=== PATIENT | female | born 1945 | race Caucasian/White ===

== ENCOUNTER 2017-07-15 12:40 | Observation (INO) | payer OTHER ==
[~2017-07-15] VITALS: Ht 154.9 cm; Wt 66.3 kg
[~2017-07-15 12:40] MED LIST: CALCIUM CITRAT1 EA16 PO; EVISTA60 MG PO; INDAPAMIDE2.5 MG PO; IRBESARTAN-HCT1 EAC1 PO; MAGNESIUM PO; MULTI-VITAMIN1 EAC5 PO; NORCO 10-325 T1 EACH PO; NORVASC5 MG PO; OCUVITE TABLET1 EAC1 PO; OMEGA 3-6-9 11200 M1 PO; OSTEO BI-FLEX1 EAC4 PO; POTASSIUM PO; SYNTHROID88 MCG PO
[2017-07-15 12:44] VITALS: BP 130/79
[2017-07-15 13:09] LABS: ABSOLUTE BASOPHILS 0.1 thou/uL (0.0-0.2); ABSOLUTE EOSINOPHILS 0.3 thou/uL (0.0-0.7); ABSOLUTE LYMPHOCYTES 1.8 thou/uL (0.8-5.3); ABSOLUTE MONOCYTES 0.5 thou/uL (0.0-1.2); ABSOLUTE NEUTROPHILS 4.6 thou/uL (1.6-8.1); BASOPHILS 1.3 %; EOSINOPHILS 4.3 %; HEMATOCRIT 44.4 % (37.0-47.0); HEMOGLOBIN 15.1 gm/dL (12.0-15.0); LYMPHOCYTES 24.3 %; MCH 33.3 pg (26.0-34.0); MCV 97.9 fL (80.0-100.0); MONOCYTES 7.2 %; MPV 7.4 fl. (7.2-11.1); NUCLEATED RBCS 0 /100WBC; PLATELET COUNT* 236 thou/uL (150-400); POLYS 62.9 %; RBC 4.54 mil/uL (4.20-5.00); WBC 7.3 thou/uL (4.0-11.0)
[2017-07-15 13:20] LABS: ANION GAP 8 mmol/L (7-16); APTT 28.3 Seconds (25.0-31.3); BUN 22 mg/dL (7-18); CALCIUM 9.5 mg/dL (8.5-10.1); CHLORIDE 98 mmol/L (98-107); CO2 30 mmol/L (21-32); CREATININE 0.9 mg/dL (0.6-1.3); GLUCOSE 105 mg/dL (70-99); INR 1.1; POTASSIUM 3.5 mmol/L (3.5-5.1); SODIUM 136 mmol/L (136-145)
[2017-07-15 13:40] LABS: ALBUMIN 3.8 g/dL (3.4-5.0); ALKALINE PHOSPHATASE 64 U/L (46-116); CK-MB MASS < 0.5 ng/mL (<0.5-3.6); LIPASE 170 U/L (73-393); MAGNESIUM 1.8 mg/dL (1.8-2.4); NT-PRO BRAIN NAT PEPTIDE 102 pg/mL (<300); SGOT 18 U/L (15-37); SGPT 20 U/L (30-65); TOTAL BILIRUBIN 0.6 mg/dL (<0.1-1.0); TOTAL PROTEIN 7.7 g/dL (6.4-8.2); TROPONIN-I LEVEL <0.06 ng/mL (<0.06)
[2017-07-15 15:30] VITALS: BP 152/62
[2017-07-15 15:50] VITALS: BP 164/67
--- NOTE | 2017-07-15 16:43 | EKG ---
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1945 Requested By: Danny Anne Order Number: [id number] MD: Young Horn Measurements Intervals [place] Rate: 83 P: 84 NH: 171 QRS: 30 QRSD: 91 T: 61 QT: 369 QTc: 434 Interpretive Statements Sinus rhythm Anteroseptal infarct, age indeterminate, possible Baseline wander in lead(s) V3 No previous ECG available for comparison Electronically Signed On 07-15-2017 16:42:43 CDT by Young Horn [email or web address] <ELECTRONICALLY SIGNED> By: Young Horn MD, [facility] 07/15/17 1642 1246 1246 Young Horn MD, [facility] /EPI
--- NOTE | 2017-07-15 18:14 | NUR ---
PT ARRIVED ON THE FLOOR AT 1545. PT IS A&O X4 CALM AND COOPERATIVE. PT DENIES ANY C/O PAIN OR DISTRESS. SHE IS UP AD SHALA AND HAS A STEADY GAIT. VSS AND TRACING NSR ON THE MONITOR. PT ORIENTED TO UNIT AND SERVICES, FOOD AND DRINK OFFERED. NURSING ASSESSMENT COMPLETED, SKIN W/D/I. PT RESTING IN BED WATCHINH TV, NURSING WILL CONTINUE TO MONITOR.
[2017-07-15 20:00] VITALS: BP 145/59
[2017-07-16] VITALS: BP 135/68
[2017-07-16 01:01] LABS: ABSOLUTE BASOPHILS 0.1 thou/uL (0.0-0.2); ABSOLUTE EOSINOPHILS 0.5 thou/uL (0.0-0.7); ABSOLUTE LYMPHOCYTES 2.7 thou/uL (0.8-5.3); ABSOLUTE MONOCYTES 0.7 thou/uL (0.0-1.2); ABSOLUTE NEUTROPHILS 4.4 thou/uL (1.6-8.1); BASOPHILS 1.1 %; EOSINOPHILS 5.8 %; HEMATOCRIT 39.3 % (37.0-47.0); HEMOGLOBIN 13.5 gm/dL (12.0-15.0); LYMPHOCYTES 31.6 %; MCH 33.5 pg (26.0-34.0); MCHC 34.5 g/dL (28.0-37.0); MCV 97.1 fL (80.0-100.0); MONOCYTES 8.7 %; MPV 7.6 fl. (7.2-11.1); NUCLEATED RBCS 0 /100WBC; PLATELET COUNT* 219 thou/uL (150-400); POLYS 52.8 %; RBC 4.04 mil/uL (4.20-5.00); RDW-CV 12.8 % (10.5-14.5); WBC 8.4 thou/uL (4.0-11.0)
[2017-07-16 01:07] LABS: CALCIUM 8.3 mg/dL (8.5-10.1); CREATININE 0.9 mg/dL (0.6-1.3); POTASSIUM 3.4 mmol/L (3.5-5.1)
--- NOTE | 2017-07-16 05:22 | NUR ---
PT CARE ASSUMED AFTER REPORT. ASSESSMENT COMPLETE. SR/1ST DEGREE ON MONITOR. DENIES PIAN. UP AD SHALA WITH STEADY GAIT. NPO FOR CARDIOLOGY CONSULT. CALL LIGHT IN REACH. BED IN LOWEST POSITION. PROGRESSING TOWARDS GOALS.
[2017-07-16 08:30] VITALS: BP 124/56
[2017-07-16 11:27] VITALS: BP 135/64
--- NOTE | 2017-07-16 11:27 | EKG ---
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 : 1945 Requested By: Danny Anne Order Number: [id number] MD: Mustapha Guevara Measurements Intervals [place] Rate: 74 P: 75 IN: 194 QRS: 0 QRSD: 95 T: 60 QT: 414 QTc: 460 Interpretive Statements Sinus rhythm Probable left atrial enlargement septal infarct, age indeterminate Compared to ECG 07/15/2017 12:46:59 No significant changes Electronically Signed On 07-16-2017 11:26:50 CDT by Mustapha Guevara [email or web address] <ELECTRONICALLY SIGNED> By: Mustapha Guevara MD, [facility] 07/16/17 [id number] Mustapha Guevara MD, [facility] /EPI
--- NOTE | 2017-07-16 11:42 | EKG ---
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 : 1945 Requested By: Danny Anne Order Number: [id number] Reading MD: Mustapha Guevara Measurements Intervals [place] Rate: 69 P: -30 MN: 214 QRS: 18 QRSD: 91 T: 61 QT: 429 QTc: 460 Interpretive Statements Sinus rhythm Borderline prolonged MN interval Probable left atrial enlargement septal infarct, age indeterminate Compared to ECG 07/15/2017 12:46:59 No significant changes Electronically Signed On 07-16-2017 11:42:16 CDT by Mustapha Guevara [email or web address] <ELECTRONICALLY SIGNED> By: Mustapha Guevara MD, [facility] 07/16/17 1142 0224 0224 Mustapha Guevara MD, [facility] /EPI
--- NOTE | 2017-07-16 14:18 | NUR ---
MET WITH PT'S SPOUSE TO DISCUSS HOME SITUATION/DC PLANNING. PT OFF UNIT FOR TEST. PER SPOUSE, SHE IS INDEPENDENT AND ACTIVE. USES NO EQUIPMENT AND HASN'T HAD HH. PLAN IS FOR HER TO RETURN HOME AT DC. WILL FOLLOW
--- NOTE | 2017-07-16 15:00 | NUR ---
PT BACK TO UNIT AFTER STRESS ECHO. A & O X4. OK TO DC PER DR. PARSON DIAGNOSTIC TEST IS NEGATIVE. DR. BURGOS CONTACTED AND AGREES TO PT DC.
[2017-07-16 16:00] VITALS: BP 135/64
--- NOTE | 2017-07-16 16:23 | EXE ---
[place] [address] STRESS ECHOCARDIOGRAM Name: CARLEY CRUZ Tunde [address] [id number] Admission: 07/15/17 Attend Phys: Andrew Charles, Discharge: Date of : 43 Date of Service: 07/16/17 1623 Report #: [id number] THIS REPORT FOR: //name// APPROVED REPORT Study performed: 07/16/2017 13:27:28 Exam: Dobutamine Stress Echo Indication: Chest pain Patient Location: In-Patient Stress Nurse: Ellie Clayton RN Room #: [facility] Supervising Physician: Mustapha Guevara MD Status: routine Ht: 5 ft 1 in HR: 66 bpm BP: 129/62 mmHg Rhythm: NSR Medical History Cardiac Risk Factors: HTN, FHX of CAD Procedure The patient underwent a Pharmacological Stress Test using Dobutamine. Blood pressure, heart rate, and EKG were monitored. An Echocardiogram was performed by orthodontic laboratory technician in four stages in quad fashion. At peak stress, four selected images were obtained and placed side by side with resting images for comparison. Stress Test Details Stress Test: Pharmacological Stress Test using Dobutamine. Reason for pharmacologic stress test: physical limitation. HR Resting HR: 66 bpm Max Heart Rate (APMHR): 147 bpm Max HR Achieved: 160 bpm Target HR (85% APMHR): 124 bpm % of APMHR: 108 Recovery HR: 103 bpm HR response to stress: Normal HR response to stress BP Resting BP: 129/62 mmHg Max BP: 184/49 mmHg Recovery BP: 141/[address] [address] STRESS ECHOCARDIOGRAM Name: CARLEY CRUZ Tunde [address]: [address] [id number] Admission: 07/15/17 Attend Phys: Andrew Charles, Discharge: Date of : 43 Date of Service: 07/16/17 1623 Report #: [id number] ECG Resting ECG: Sinus Rhythm Stress ECG: Sinus Rhythm, nonspecific ST-T abnormalities ST Change: Upsloping ST depression Maximum ST Deviation: 1.5 mm Arrhythmia: VPC's Recovery ECG: Sinus Rhythm Recovery ST Change: Upsloping ST depression Recovery ST Deviation: 1.5 mm Clinical Reason for Termination: Completed protocol Stress Symptoms: Nausea Pre-Stress Echo The resting Echocardiogram showed normal left ventricular contractility with an estimated Ejection Fraction of about 60-65%. Post-Stress Echo The stress Echocardiogram showed normal left ventricular contractility with an estimated Ejection Fraction of about >70%. Conclusion Clinical Response: Non-ischemic Stress ECG Response: Equivocal Stress Echo Images: Non-ischemic low risk dobutamine stress echo for future cardiac events Other Information Study Quality: Good <Conclusion> low risk dobutamine stress echo for future cardiac events <ELECTRONICALLY SIGNED> By: Mustapha Guevara MD, [facility]ACC 07/16/17 1623 162 162 Mustapha Guevara MD, [facility]ACC /INF
--- NOTE | 2017-07-17 13:18 | CON ---
[address] [address] CONSULTATION Name: CARLEY CRUZ Room: [address] Maria Isabel Rice#: [id number] Admission: 07/15/17 Attend Phys: Andrew Charles MD Discharge: 07/16/17 Date of : 43 Report #: [id number] THIS REPORT FOR: //name// CC: Andrew Rudd DO DATE OF SERVICE: 07/16/2017 CARDIOLOGY CONSULTATION HISTORY OF PRESENT ILLNESS: The patient is a 72-year-old white female who I was asked to see in the hospital today after she complained of chest pain. The patient has no previous history of heart disease. She has had no previous cardiac evaluation. She does not exercise on a regular basis because of chronic back pain. She states about 2 weeks ago, she had a pain in her chest, within her back, up in her throat. She noticed her blood pressure was high. It resolved after several minutes. She then had another episode about a week ago, where she felt a sharp pain in her chest that resolved. Yesterday morning, she was at home and she felt sharp pain in her left breast that radiated around into her back. However, she denies shortness of breath, diaphoresis or nausea. She denied any recent trauma to her chest. The pain was not related to food or bending. She denied any rash. She does get short of breath with exertion, but has had no edema. She notes occasional flutter in her chest. No syncope. PAST MEDICAL HISTORY: Significant for tonsillectomy, hysterectomy, cholecystectomy and hypertension. No history of diabetes. MEDICATIONS: Consist of amlodipine, indapamide, irbesartan, hydrochlorothiazide, Synthroid and Evista. ALLERGIES: She has no known drug allergies. FAMILY HISTORY: Her brother had coronary bypass surgery. SOCIAL HISTORY: She is . She and her live in [place]. Quit smoking years ago. No alcohol abuse. REVIEW OF SYSTEMS: She has had no history of stroke, asthma, peptic ulcer disease, liver disease or kidney disease. She has chronic back pain. She wears glasses. No psychiatric illness. PHYSICAL EXAMINATION: GENERAL: Revealed an elderly female who was lying in bed. She appeared in no acute distress. VITAL SIGNS: She had a blood pressure of 130/80, pulse 70. [place] [address] CONSULTATION Name: CARLEY CRUZ Room: [address]#: [id number] Admission: 07/15/17 Attend Phys: Andrew Charles MD Discharge: 07/16/17 Date of : 43 Report #: [id number] HEENT: She was anicteric, conjunctivae pink. Mucous membranes moist. NECK: Neck veins nondistended. No carotid bruits. Neck supple. CHEST: Clear to auscultation. CARDIAC EXAMINATION: Regular rate, without murmur. ABDOMEN: Soft, nontender. EXTREMITIES: Had no edema. Dorsalis pedis pulse 3+ bilaterally. SKIN: Warm, dry. NEUROLOGICAL EXAMINATION: Nonfocal. LYMPH EXAMINATION: No adenopathy. MUSCULOSKELETAL EXAMINATION: No joint effusion. PSYCHIATRIC EXAMINATION: Her mood is appropriate. LABORATORY DATA: Her ECG showed a sinus rhythm, septal Q-waves. There was a nonspecific ST-segment change noted. Her workup in the emergency room yesterday, she had a portable chest x-ray that showed normal heart size and minimal atelectasis. She had sodium 137, potassium 3.4 and creatinine 0.9. Liver function studies were normal. Troponin all 0.06. White blood cell count 8.4 and hemoglobin 13.5. IMPRESSION AND RECOMMENDATIONS: 1. Chest pain. The patient has risk factors for coronary artery disease. Pain is atypical for angina. However, because of abnormal ECG and risk factors, I would recommend screening. Since the patient cannot walk on a treadmill, I would recommend a dobutamine stress echo. 2. Hypertension. The patient has been on a calcium js, ARB and diuretic. 3. Chronic back pain. 4. History of dyspepsia. <ELECTRONICALLY SIGNED> By: Mustapha Guevara MD, FACC 07/17/17 1318 0921 1230Daviboyd Guevara MD, FACC /nt
== END 2017-07-16 17:00 | disposition home or self-care (01) ==
LOC: M.ERS 12:40 → M.2W 13:40 → M.TBA-ER 13:40 → M.2W 15:56
PROVIDERS: Family Medicine; ADMIT Internal Medicine
DX: R07.89 Other chest pain (principal); I10 Essential (primary) hypertension; K21.9 Gastro-esophageal reflux disease without esophagitis; E03.9 Hypothyroidism, unspecified; Z87.891 Personal history of nicotine dependence

== ENCOUNTER 2017-12-09 06:51 | Inpatient (IN) | payer OTHER ==
[~2017-12-09] VITALS: Ht 152.4 cm; Wt 65.8 kg
[2017-12-09 07:10] VITALS: BP 155/65
[2017-12-09 07:55] LABS: ABSOLUTE BASOPHILS 0.1 thou/uL (0.0-0.2); ABSOLUTE EOSINOPHILS 0.3 thou/uL (0.0-0.7); ABSOLUTE LYMPHOCYTES 1.5 thou/uL (0.8-5.3); ABSOLUTE MONOCYTES 0.6 thou/uL (0.0-1.2); ABSOLUTE NEUTROPHILS 5.1 thou/uL (1.6-8.1); EOSINOPHILS 4.6 %; HEMOGLOBIN 13.7 gm/dL (12.0-15.0); LYMPHOCYTES 19.1 %; MCH 33.3 pg (26.0-34.0); MCHC 34.2 g/dL (28.0-37.0); MCV 97.6 fL (80.0-100.0); MONOCYTES 7.8 %; MPV 7.8 fl. (7.2-11.1); NUCLEATED RBCS 0 /100WBC; PLATELET COUNT* 212 thou/uL (150-400); POLYS 67.5 %; RDW-CV 13.1 % (10.5-14.5); WBC 7.6 thou/uL (4.0-11.0)
[2017-12-09 07:58] LABS: CALCIUM 8.6 mg/dL (8.5-10.1); CREATININE 0.9 mg/dL (0.6-1.3); POTASSIUM 3.3 mmol/L (3.5-5.1)
[2017-12-09 08:02] LABS: ALBUMIN 3.5 g/dL (3.4-5.0); TOTAL BILIRUBIN 0.6 mg/dL (<0.1-1.0); TOTAL PROTEIN 7.4 g/dL (6.4-8.2)
[2017-12-09 08:27] LABS: URINE BILIRUBIN NEGATIVE (Negative); URINE BLOOD NEGATIVE (Negative); URINE CLARITY CLEAR; URINE COLOR YELLOW; URINE GLUCOSE-RANDOM NEGATIVE (Negative); URINE KETONES NEGATIVE (Negative); URINE LEUKOCYTES-REFLEX 1+ (Negative); URINE NITRITE-REFLEX NEGATIVE (Negative); URINE PROTEIN NEGATIVE (Negative); URINE UROBILINOGEN 0.2 E.U./dl (0.2-1.0)
[2017-12-09 08:47] LABS: URINE WBC-REFLEX 0-5 Rare /HPF (0-5)
[2017-12-09 08:48] LABS: SQUAMOUS 0-3 Few /LPF (0-3); URINE RBC 0-2 Rare /HPF (0-2)
[2017-12-09 08:49] LABS: BACTERIA-REFLEX 1-9 Few /HPF (None Seen); CASTS None Seen /LPF (None Seen); CRYSTALS None Seen /LPF (None Seen); MUCUS None Seen strn/LPF (None Seen)
[2017-12-09 09:29] VITALS: BP 160/65
--- NOTE | 2017-12-09 10:33 | NUR ---
ADMISSION ASSESSMENT COMPLETED REFER TO COMPUTER CHARTING. PATIENT MED/SURG STATUS. BED IN LOW AND LOCKED POSITION. CALL LIGHT WITHIN REACH. PATIENT REPORTING NO NAUSEA OR SHORTNESS OF BREATH. PATIENT ORIENTATED TO ROOM AND CONTROLS. IV SALINE LOCKED. ON ROOM AIR. WILL CONTINUE TO MONITOR THIS SHIFT.
[2017-12-09 12:00] VITALS: BP 130/60
[2017-12-09 20:20] VITALS: BP 136/64
[2017-12-10] VITALS: BP 143/70
--- NOTE | 2017-12-10 06:38 | NUR ---
Alert and oriented x 4. She is up independently in the room. She's had some high BP's but she has hypertension. She has L flank pain. She has had norco x 2 for pain but states it doesn't help at this pain. Fentanyl given x 1 and she did get some rest this shift. Vitals are satble. She would like a stool softener and milk of mag ordered.
[2017-12-10 08:45] VITALS: BP 148/64
[2017-12-10 10:08] LABS: CALCIUM 9.2 mg/dL (8.5-10.1); CREATININE 0.8 mg/dL (0.6-1.3); POTASSIUM 3.2 mmol/L (3.5-5.1)
[2017-12-10 10:11] LABS: HEMATOCRIT 42.4 % (37.0-47.0); HEMOGLOBIN 14.4 gm/dL (12.0-15.0); MCH 32.9 pg (26.0-34.0); MCHC 33.9 g/dL (28.0-37.0); MCV 96.9 fL (80.0-100.0); RBC 4.37 mil/uL (4.20-5.00); RDW-CV 12.8 % (10.5-14.5)
[2017-12-10 11:20] VITALS: BP 149/69
--- NOTE | 2017-12-10 16:00 | NUR ---
PT.VERY DROWSY FROM PAIN MEDICATION. SHE SAID SHE LIVES WITH HER . IS INDEPENDENT. NO HX OF DME/HH OR SNF. NO DISCHARGE NEEDS ANTICIPATED.
--- NOTE | 2017-12-10 16:35 | NUR ---
PATIENT GIVEN PRN FENTANYL AND HYDROCODONE FOR PAIN WITH MINIMAL RELIEF. SCHED TRAMADOL STARTED THIS SHIFT AND GIVEN WITH MINIMAL RELIEF. DR. HERNANDEZ NOTIFIED AND ORDERS RECEIVED FOR PRN IV MOPRHINE, PATIENT STATED IT TOOK THE EGDE OFF THE PAIN. IV RESTARTED TO LEFT FOREARM THIS SHIFT. IV ABX INFUSED ORDERED. POTASSIUM REPLACED PER PROTOCOL, REDRAW THIS EVENING.
[2017-12-10 16:37] VITALS: BP 152/69
[2017-12-11 09:11] LABS: HEMOGLOBIN 14.6 gm/dL (12.0-15.0); MCH 33.5 pg (26.0-34.0); MCHC 34.1 g/dL (28.0-37.0); MCV 98.1 fL (80.0-100.0); MPV 7.7 fl. (7.2-11.1); RBC 4.38 mil/uL (4.20-5.00); RDW-CV 12.8 % (10.5-14.5); WBC 5.9 thou/uL (4.0-11.0)
[2017-12-11 09:23] VITALS: BP 184/82
[2017-12-11 09:23] LABS: CALCIUM 8.8 mg/dL (8.5-10.1); CREATININE 0.8 mg/dL (0.6-1.3); MAGNESIUM 1.5 mg/dL (1.8-2.4); POTASSIUM 3.4 mmol/L (3.5-5.1)
[2017-12-11] MEDS ORDERED: LIDOPATCH1 EACH TOP (09:36)
[2017-12-11] MEDS ORDERED: CIPRO500 MG PO (09:36)
[2017-12-11] MEDS ORDERED: TRAMADOL 50 MG50 MG PO (09:36)
[2017-12-11 11:21] VITALS: BP 184/82
[2017-12-11 12:53] VITALS: BP 184/82
--- NOTE | 2017-12-11 12:54 | NUR ---
PT WAS GIVEN DISCHARGE INFORMATION. PT DENIED [place] QUETSIONS AT THIS TIME. PT HAD BELONGINGS GATEHRED AND PRESCRIPTIONBS WERE GIVEN. PT LEFT VIA WHEELCHAIR WITH A FAMILY MEMBER ACCOMPANIED BY NURSING STAFF.
--- NOTE | 2017-12-11 12:58 | NUR ---
DOCUMENTATION BY ADITI Adkins RN REVIEWED
== END 2017-12-11 13:03 | disposition home or self-care (01) | DRG 690 ==
LOC: M.ERS 06:51 → M.2W 09:05 → M.TBA-ER 09:05 → M.2W 09:36 → M.ORTHSURG 12-10 07:40
PROVIDERS: Emergency Medicine Emergency Medical Services; ADMIT Internal Medicine
DX: N10 Acute pyelonephritis (principal); I10 Essential (primary) hypertension; K21.9 Gastro-esophageal reflux disease without esophagitis; E03.9 Hypothyroidism, unspecified; Z87.891 Personal history of nicotine dependence; Z79.899 Other long term (current) drug therapy

== ENCOUNTER 2017-12-17 15:13 | Emergency (ER) | payer OTHER ==
[~2017-12-17] VITALS: Ht 152.4 cm; Wt 65.8 kg
[~2017-12-17 15:13] MED LIST changes: +CIPRO500 MG PO; +LIDOPATCH1 EACH TOP; +TRAMADOL 50 MG50 MG PO
[2017-12-17] MEDS ORDERED: NORCO 5-325 TA1 EAC1 PO (17:28)
[2017-12-17] MEDS ORDERED: COLACE100 MG PO (17:28)
[2017-12-17 17:41] VITALS: BP 183/72
== END 2017-12-17 17:45 | disposition home or self-care (01) ==
LOC: M.ERS 15:13
DX: S32.018A Other fracture of first lumbar vertebra, initial encounter for closed fracture (principal); K59.00 Constipation, unspecified; I10 Essential (primary) hypertension; K21.9 Gastro-esophageal reflux disease without esophagitis; E03.9 Hypothyroidism, unspecified; X58.XXXA Exposure to other specified factors, initial encounter; Y93.89 Activity, other specified; Y92.89 Other specified places as the place of occurrence of the external cause; Y99.8 Other external cause status

== ENCOUNTER → 2018-05-05 | Outpatient (CLI) | payer OTHER ==
[~2018-05-05] MED LIST changes: +COLACE100 MG PO; +NORCO 5-325 TA1 EAC1 PO
== END ==
LOC: M.RAD 13:24
DX: M85.89 Other specified disorders of bone density and structure, multiple sites (principal); M54.9 Dorsalgia, unspecified; Z78.0 Asymptomatic menopausal state

== ENCOUNTER → 2020-06-11 | Outpatient (CLI) | payer OTHER | LOC: M.ULTRA 08:04 | PROVIDERS: ATTEND Family Medicine | DX: N95.0 Postmenopausal bleeding (principal) ==